=== PATIENT | female | born 1995 | race Caucasian/White ===

== ENCOUNTER 2021-08-10 01:02 | Emergency (ER) | payer MEDICAID ==
[~2021-08-10] VITALS: Ht 162.6 cm; Wt 49.9 kg
[2021-08-10 01:35] VITALS: BP_SYST 137
[2021-08-10] MEDS ORDERED: MORPHINE 4 MG INJ. 4 MG/ML VIAL ONE (01:57)
[2021-08-10] MEDS ORDERED: ONDANSETRON HCL 4 MG/2 ML VIAL ONE (01:58)
[2021-08-10] MEDS ORDERED: MORPHINE 4 MG INJ. 4 MG/ML VIAL IVP ONE (02:00)
[2021-08-10] MEDS ORDERED: KETAMINE 30 MG/3 ML SYRINGE IVP ONE ×3 (02:30→05:00)
[2021-08-10] MEDS ORDERED: KETAMINE 30 MG/3 ML SYRINGE ONE (04:28)
[2021-08-10] MEDS ORDERED: LIDOCAINE/EPI 1% 1:100000 20 ML VIAL INJ ONE ×2 (04:51→05:00)
[2021-08-10] MEDS ORDERED: IBUPROFEN 600 MG TABLET PO ONE (05:45)
[2021-08-10 06:40] VITALS: BP_SYST 136
== END 2021-08-10 06:40 | disposition home or self-care (01) ==
LOC: SED 01:02
DX: S52.612A Displaced fracture of left ulna styloid process, initial encounter for closed fracture (principal); S52.502A Unspecified fracture of the lower end of left radius, initial encounter for closed fracture; W18.39XA Other fall on same level, initial encounter; Y93.89 Activity, other specified; Y92.89 Other specified places as the place of occurrence of the external cause; Y99.8 Other external cause status
CPT/HCPCS: 25605; 36415; 73100; 73110; 76376; 84702; 96374; 99152; 99285; J2270; J2405

== ENCOUNTER 2022-01-02 14:15 | Emergency (ER) | payer MEDICAID ==
[~2022-01-02] VITALS: Ht 162.6 cm; Wt 52.2 kg
[2022-01-02 14:26] VITALS: BP_SYST 104
--- NOTE | 2022-01-02 14:40 | NUR ---
Pt in bed #8 coming from home ambulatory with steady gait. Pt c/o abrasion on chin that yesterday due to falling from skating and hit her chin. Has pain 3/10 non-radiating. No LOC. VSS. Ambulatory with steady gait. Bed in lowest position. NKA. No known medical conditions.
--- NOTE | 2022-01-02 14:42 | NUR ---
Dr. Hodge at bedside examining pt.
--- NOTE | 2022-01-02 14:52 | NUR ---
JUNI Burks at bedside cleaning wound.
[2022-01-02] MEDS ORDERED: BACITRACIN 1 GM OINT TP ONE ×2 (15:00→15:39)
[2022-01-02] MEDS ORDERED: CEPH250C PO (15:03)
[2022-01-02] MEDS ORDERED: BACI28.433 TP (15:03)
[2022-01-02] MEDS ORDERED: ACET325T53 PO (15:03)
[2022-01-02 15:37] VITALS: BP_SYST 122
--- NOTE | 2022-01-02 15:38 | NUR ---
Patient given written and verbal discharge instructions and verbalizes understanding. ER MD discussed with patient the results and treatment provided. Patient in stable condition. ID arm band removed. Rx of given. Patient educated on pain management and to follow up with PMD. Pain Scale 0/10. Opportunity for questions provided and answered. Medication side effect fact sheet provided.
== END 2022-01-02 15:37 | disposition home or self-care (01) ==
LOC: SED 14:15
DX: S01.81XA Laceration without foreign body of other part of head, initial encounter (principal); Z79.899 Other long term (current) drug therapy; V00.131A Fall from skateboard, initial encounter; Y93.89 Activity, other specified; Y92.89 Other specified places as the place of occurrence of the external cause; Y99.8 Other external cause status
CPT/HCPCS: 99282